=== PATIENT | female | born 1950 | race Caucasian/White ===

== ENCOUNTER 2021-02-15 17:03 | Outpatient (CLI) | payer MEDICARE | END 2021-02-15 17:04 | disposition home or self-care (01) | LOC: NAV RAD 17:03 | PROVIDERS: ATTEND Family Medicine | DX: M25.551 Pain in right hip (principal); M47.22 Other spondylosis with radiculopathy, cervical region; M16.11 Unilateral primary osteoarthritis, right hip | CPT/HCPCS: 72040; 72170 ==

== ENCOUNTER 2021-08-30 | Outpatient (CLI) | payer MEDICARE | END 2021-08-30 16:05 | disposition home or self-care (01) | DX: R60.0 Localized edema (principal) | CPT/HCPCS: 36415; 80048; 85025; 85379 ==